=== PATIENT | female | born 1965 | race Caucasian/White ===

== ENCOUNTER 2020-06-28 09:07 | Day surgery (SDC) | payer BC ==
[2020-06-28] MEDS ORDERED: Sodium Chloride 0.9% 1,000 ML IV STA (09:43)
[2020-06-28] MEDS ORDERED: Propofol 200 MG/20 ML SDV ONE (10:00)
[2020-06-28] MEDS ORDERED: Midazolam 1 MG/ML 2 ML SDV ONE (10:00)
[2020-06-28] MEDS ORDERED: fentaNYL 100 MCG/2 ML SDV ONE (10:00)
--- NOTE | 2020-06-28 14:25 | OR ---
DATE OF PROCEDURE: 06/28/2020 SURGEON: Chin Matthews MD PROCEDURE: Colonoscopy. FINDINGS: 1. Sigmoid colon polyp, approximately 5 mm, completely removed using cold biopsy forceps. 2. Diverticulosis, mild, without evidence of diverticulitis or bleeding. PREOPERATIVE DIAGNOSIS: Screening colonoscopy. POSTOPERATIVE DIAGNOSIS: Screening colonoscopy. RISKS: Risks, benefits, alternatives, and limitations including, but not limited to infection, bleeding, and perforation were explained to the patient, who wished to proceed. PROCEDURE IN DETAIL: The patient was placed in left lateral decubitus position. Digital rectal exam was performed without abnormality. Scope was introduced and advanced atraumatically to the ileocecal valve. A photo was taken of this. Scope was brought back through the ascending, transverse, descending colon, and retroflexed. No evidence of old or new blood. No masses. The patient did have diverticulosis, which would be described as mild and limited to sigmoid colon without evidence of diverticulitis or bleeding. No abnormalities on retroflexion. The polyp was removed with cold biopsy forceps as described above, and no abnormal bleeding was noted after removal. Greater than 8 minutes was spent removing the scope. The patient tolerated the procedure well. Chin Matthews MD /[id number]
== END 2020-06-28 12:27 | disposition home or self-care (01) ==
LOC: JP.SDS 09:07 → JP.ACU 09:07 → EDSTATUS 15:26
PROVIDERS: ATTEND Surgery
DX: Z12.11 Encounter for screening for malignant neoplasm of colon (principal); K63.5 Polyp of colon; K57.30 Diverticulosis of large intestine without perforation or abscess without bleeding
CPT/HCPCS: 45380; J2250; J2704; J3010; J7030

== ENCOUNTER 2021-07-04 08:31 | Day surgery (SDC) | payer BC ==
[~2021-07-04 08:31] MED LIST: Midazolam 1 MG/ML 2 ML SDV ONE; Propofol 200 MG/20 ML SDV ONE; fentaNYL 100 MCG/2 ML SDV ONE
[2021-07-04] MEDS ORDERED: Sodium Chloride 0.9% 1,000 ML IV SCH (09:30)
--- NOTE | 2021-07-04 14:33 | OR ---
DATE OF PROCEDURE: 07/04/2021 SURGEON: Chin Matthews MD PROCEDURE: Esophagogastroduodenoscopy. FINDINGS: 1. Probable 3 cm hiatal hernia. 2. Hutchinson-type protrusion of mucosa into the GE junction concerning for reflux disease (biopsied using cold biopsy forceps). 3. Gastritis, mild. COMPLICATIONS: None. HOT SHOT: None. ANESTHESIA: MAC. PREOPERATIVE DIAGNOSIS: Epigastric pain. POSTOPERATIVE DIAGNOSIS: Epigastric pain. RISKS: Risks, benefits, alternatives, and limitations including, but not limited to infection, bleeding, perforation, false positives, false negatives were explained to the patient and she wished to proceed. PROCEDURE IN DETAIL: The patient was placed in left lateral decubitus position. The EGD scope was introduced and advanced atraumatically to the second part of the duodenum. No evidence of duodenitis or ulceration were noted. Within the stomach itself, there was gastritis which was mild. 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 The GE junction was biopsied multiple times using cold biopsy forceps. The remainder of the esophagus was inspected without abnormality. No other abnormalities were noted. The patient tolerated the procedure well. Chin Mathtews MD /[id number]
== END 2021-07-04 11:15 | disposition home or self-care (01) ==
LOC: JP.SDS 08:31
PROVIDERS: ATTEND Surgery
DX: K22.10 Ulcer of esophagus without bleeding (principal); K29.70 Gastritis, unspecified, without bleeding; K44.9 Diaphragmatic hernia without obstruction or gangrene
CPT/HCPCS: J2250; J2704; J3010; J7030

== ENCOUNTER 2024-05-15 07:00 | Day surgery (SDC) | payer BC ==
[2024-05-15] MEDS: Sodium Chloride 0.9% 10 ML Syringe FLUSH PRN (07:40)
== END 2024-05-15 09:04 | disposition home or self-care (01) ==
LOC: JP.SDS 07:00
PROVIDERS: ATTEND Ophthalmology
DX: H25.11 Age-related nuclear cataract, right eye (principal); K21.9 Gastro-esophageal reflux disease without esophagitis
CPT/HCPCS: J3490; V2632

== ENCOUNTER → 2024-06-19 | Day surgery (SDC) | payer BC ==
[2024-06-19] MEDS: Sodium Chloride 0.9% 10 ML Syringe FLUSH PRN (06:53)
== END ==
LOC: JP.SDS 06:26
PROVIDERS: ATTEND Ophthalmology
DX: H25.12 Age-related nuclear cataract, left eye (principal)
CPT/HCPCS: J3490; V2632